=== PATIENT | male | born 1960 | race Caucasian/White ===

== ENCOUNTER 2021-07-18 04:15 | Day surgery (SDC) | payer BC ==
[2021-07-14 12:38] VITALS: BMI 22.8
[2021-07-18] MEDS ORDERED: PROPOFOL 20 ML ONE (08:58)
[2021-07-18] MEDS ORDERED: MIDAZOLAM HCL 2 MG/2 ML SINGLE DOSE VIAL ONE (08:58)
[2021-07-18 10:16] VITALS: BP 147/94; PULSE 84; TEMP 98.2
== END 2021-07-18 10:35 | disposition home or self-care (01) ==
LOC: JASU-SURG 04:15
PROVIDERS: ATTEND Urology
PROC: 0TF3XZZ Fragmentation in Right Kidney Pelvis, External Approach (ICD-10-PCS; principal; 2021-07-18 08:30)
DX: N20.0 Calculus of kidney (principal)
CPT/HCPCS: 82962